=== PATIENT | female | born 1950 | race Caucasian/White ===

== ENCOUNTER 2020-10-26 16:14 | Observation (INO) ==
[2020-10-26] MEDS ORDERED: Ondansetron 4 MG/2 ML VIAL IVP ONE (16:25)
[2020-10-26] MEDS ORDERED: Isovue-370 500 ML BOTTLE IVP ONE (16:32)
[2020-10-26] MEDS ORDERED: 0.9 % Sodium Chloride 1,000 ML IVC ONE (16:32)
[2020-10-26 16:56] LABS: Basophils # 0.1 K/mcL (0.0-0.2); Basophils % 0.9 %; Eosinophils # 0.4 K/mcL (0.0-0.6); Eosinophils % 5.5 %; Hematocrit 38.3 % (35.3-44.9); Hemoglobin 12.3 g/dL (11.5-15.4); Immature Granulocytes % 0.3 % (0-4); Lymphocytes # 1.2 K/mcL (0.6-4.6); Lymphocytes % 18.4 %; Mean Corpuscular HGB Conc 32.1 g/dL (31.6-35.5); Mean Corpuscular Hemoglobin 31.5 pg (28.0-33.3); Monocytes # 0.4 K/mcL (0.0-1.3); Monocytes % 5.8 %; Neutrophils # 4.6 K/mcL (1.6-8.9); Platelet Count 274 K/mcL (140-400); Red Blood Count 3.91 M/mcL (3.82-4.97); Red Cell Distribution Width 13.5 % (11.5-14.5); Segmented Neutrophils % 69.1 %; White Blood Count 6.7 K/mcL (4.3-11.1)
[2020-10-26 17:27] LABS: Calcium 9.2 mg/dL (8.6-10.3); Potassium 4.1 mEq/L (3.5-5.1); Troponin I 0.04 ng/mL (< 0.04)
[2020-10-26] MEDS ORDERED: *HR* Heparin 5,000 UNIT/ML VIAL IVP PRN ×2 (18:55)
[2020-10-26] MEDS ORDERED: *HR* Heparin 5,000 UNIT/ML VIAL IVP ONE (18:55)
[2020-10-26] MEDS ORDERED: Heparin 25,000UNIT/250ML 1/2NS 25,000 UNIT/250 ML IV.SOLN IVC SCH (19:00)
[2020-10-26 19:45] LABS: Heparin anti-factor XA UFH < 0.04 IU/mL (0.30-0.70)
[2020-10-26 19:46] LABS: Prothrombin Time 11.6 Seconds (9.4-12.1)
[2020-10-26 20:07] LABS: Hematocrit 36.1 % (35.3-44.9); Hemoglobin 11.6 g/dL (11.5-15.4); Mean Corpuscular HGB Conc 32.1 g/dL (31.6-35.5); Mean Corpuscular Hemoglobin 31.7 pg (28.0-33.3); Mean Corpuscular Volume 98.6 fL (83.0-100.0); Mean Platelet Volume 9.3 fL (9.4-12.4); Platelet Count 254 K/mcL (140-400); Red Blood Count 3.66 M/mcL (3.82-4.97); Red Cell Distribution Width 13.5 % (11.5-14.5); White Blood Count 9.9 K/mcL (4.3-11.1)
[2020-10-26] MEDS ORDERED: *HR* HYDROcodone/Acet 5/325 mg TABLET PO PRN (20:13)
[2020-10-26] MEDS ORDERED: Naloxone 0.4 MG/ML INJ IVP PRN (20:13)
[2020-10-26] MEDS ORDERED: Acetaminophen 325 MG TABLET PO PRN (20:13)
[2020-10-26] MEDS ORDERED: Ondansetron 4 MG/2 ML VIAL IVP PRN (20:13)
[2020-10-26] MEDS ORDERED: Melatonin 3 MG TABLET PO SCH (21:00)
[2020-10-26] MEDS: 0.9 % Sodium Chloride 1,000 ML IVC SCH (21:24)
[2020-10-26] MEDS: BuPROPion XL (24 HR) 150 MG TABLET PO SCH (21:24)
[2020-10-26 22:07] LABS: Albumin 3.7 g/dL (3.5-5.7); Albumin/Globulin Ratio 1.3 (1.1-2.2); Bilirubin,Total 0.2 mg/dL (0.3-1.0); Calcium 8.8 mg/dL (8.6-10.3); Globulin 2.8 g/dL (2.4-3.5); Phosphorous 3.6 mg/dL (2.7-4.5); Potassium 4.7 mEq/L (3.5-5.1); Total Protein 6.5 g/dL (6.4-8.9); Troponin I 0.05 ng/mL (< 0.04)
[2020-10-27 03:06] LABS: Basophils % 0.1 %; Eosinophils # 0.4 K/mcL (0.0-0.6); Hematocrit 36.2 % (35.3-44.9); Hemoglobin 11.6 g/dL (11.5-15.4); Immature Granulocytes % 0.1 % (0-4); Lymphocytes # 0.9 K/mcL (0.6-4.6); Lymphocytes % 11.2 %; Mean Corpuscular Volume 99.7 fL (83.0-100.0); Mean Platelet Volume 9.6 fL (9.4-12.4); Monocytes # 0.2 K/mcL (0.0-1.3); Monocytes % 2.3 %; Neutrophils # 6.3 K/mcL (1.6-8.9); Platelet Count 268 K/mcL (140-400); Red Blood Count 3.63 M/mcL (3.82-4.97); Red Cell Distribution Width 13.5 % (11.5-14.5); Segmented Neutrophils % 81.3 %; White Blood Count 7.8 K/mcL (4.3-11.1)
[2020-10-27 03:37] LABS: Calcium 8.3 mg/dL (8.6-10.3); Chol/HDL Ratio 5.5 (0-4.9); Potassium 3.9 mEq/L (3.5-5.1); Troponin I 0.05 ng/mL (< 0.04)
[2020-10-27] MEDS ORDERED: hydrOXYzine pamoate 25 MG CAPSULE PO ONE (03:43)
[2020-10-27] MEDS: 0.9 % Sodium Chloride 1,000 ML IVC SCH (05:17)
[2020-10-27] MEDS: BuPROPion XL (24 HR) 150 MG TABLET PO SCH (08:30)
[2020-10-27] MEDS ORDERED: hydrOXYzine pamoate 25 MG CAPSULE PO PRN (09:23)
[2020-10-27] MEDS ORDERED: predniSONE 20 MG TABLET PO SCH (09:30)
[2020-10-27 11:03] VITALS: BP 127/71
== END 2020-10-27 14:31 | disposition home or self-care (01) ==
LOC: 3BNU 16:14 → EMEROOARM 16:14 → SUATTDRO 19:33 → 3BNU 20:26
PROVIDERS: ADMIT Family Medicine; ATTEND Internal Medicine

== ENCOUNTER 2021-01-05 07:26 | Inpatient (IN) ==
[~2021-01-05 07:26] MED LIST: Acetaminophen IV 1,000 MG/100 ML BAG IVPB ONE; Famotidine 20 MG/2 ML VIAL IVP ONE; Vancomycin 1,000 MG, Sodium Chloride IRRigation 1,000 ML IR ONE
[2021-01-05] MEDS ORDERED: CeFAZolin Syr 2,000MG/20 ML 2,000 MG/20 ML SYRINGE IVPB ONE (08:01)
[2021-01-05] MEDS ORDERED: Ringers Solution, Lactated 1,000 ML IVC SCH (08:15)
[2021-01-05] MEDS ORDERED: 0.9 % Sodium Chloride 500 ML IVC SCH (08:15)
[2021-01-05] MEDS ORDERED: Heparin 1,000 UNITS/500 mL 500 ML ONE ×2 (08:35→08:54)
[2021-01-05] MEDS ORDERED: *HR* Midazolam HCl 2 MG/2 ML VIAL ONE (08:46)
[2021-01-05] MEDS ORDERED: *HR* FentaNYL (PF) 100 MCG/2 ML VIAL ONE (08:46)
[2021-01-05] MEDS ORDERED: Albumin Human 5% 25.0 GM/500 ML IV.SOLN ONE (08:51)
[2021-01-05] MEDS ORDERED: *HR* Vasopressin 20 UNIT/ML VIAL ONE ×2 (08:52→13:49)
[2021-01-05] MEDS ORDERED: Lidocaine -MPF 2% 2 ML VIAL ONE (08:54)
[2021-01-05] MEDS ORDERED: *HR* Rocuronium Bromide 50 MG/5 ML VIAL ONE ×2 (08:54→10:21)
[2021-01-05] MEDS ORDERED: Lidocaine HCL 4 ML Topical Solution (Laryng-O-Jet Kit Sterile Pak) TP ONE (08:54)
[2021-01-05] MEDS ORDERED: *HR* Propofol 200 MG/20 ML VIAL IVP ONE (08:54)
[2021-01-05] MEDS ORDERED: Ondansetron 4 MG/2 ML VIAL ONE (08:54)
[2021-01-05] MEDS ORDERED: *HR* Phenylephrine 10 MG/ML VIAL ONE (08:55)
[2021-01-05] MEDS ORDERED: Vancomycin 1,000 MG, Sodium Chloride IRRigation 1,000 ML IR ONE (09:00)
[2021-01-05] MEDS ORDERED: Ondansetron 4 MG/2 ML VIAL IVP PRN (09:34)
[2021-01-05] MEDS ORDERED: *HR* HYDROmorphone PF 0.5 MG/0.5 ML SYRINGE IVP PRN (09:34)
[2021-01-05 10:22] LABS: ABG Base Excess -6 mEq/L (-2 to 3); ABG Chloride 109 mEq/L (98-107); ABG Glucose 83 mg/dL (60-95); ABG HCO3 19 mEq/L (21-27); ABG Ionized Calcium 1.07 mmol/L (1.15-1.35); ABG Oxygen Saturation 100 % (95-98); ABG PCO2 34 mmHg (35-45); ABG PH 7.36 pH Units (7.32-7.45); ABG PO2 368 mmHg (85-104); ABG TCO2 20 mEq/L (20-26)
[2021-01-05] MEDS ORDERED: EPHEDrine 50 MG/ML VIAL ONE (10:37)
[2021-01-05] MEDS ORDERED: Nitroglycerin 0 MG/0 ML INFUS..BTL IVC ONE (11:34)
[2021-01-05] MEDS ORDERED: NiCARdipine 2.5 MG/10 ML Syringe IVPB ONE (11:34)
[2021-01-05] MEDS ORDERED: *HR* Nitroprusside 50 MG VIAL IVC ONE (11:34)
[2021-01-05] MEDS ORDERED: niCARdipine 0 MG/0 ML MLS IVC ONE (11:34)
[2021-01-05] MEDS ORDERED: *HR* Norepinephrine 4 MG/4 ML VIAL IVC ONE (11:50)
[2021-01-05] MEDS ORDERED: *HR* Labetalol 20 MG/4 ML SYRINGE IVP PRN ×2 (11:55→15:29)
[2021-01-05] MEDS ORDERED: Vancomycin 1,000 MG VIAL ONE (12:10)
[2021-01-05] MEDS ORDERED: Sugammadex Sodium 200 MG/2 ML VIAL IV ONE (12:36)
[2021-01-05] MEDS ORDERED: *HR* Heparin 5,000 UNIT/ML VIAL ONE (12:38)
[2021-01-05 12:47] LABS: ABG Base Excess -4 mEq/L (-2 to 3); ABG Chloride 110 mEq/L (98-107); ABG Glucose 144 mg/dL (60-95); ABG HCO3 20 mEq/L (21-27); ABG Ionized Calcium 1.06 mmol/L (1.15-1.35); ABG Oxygen Saturation 100 % (95-98); ABG PCO2 35 mmHg (35-45); ABG PH 7.38 pH Units (7.32-7.45); ABG PO2 394 mmHg (85-104); ABG TCO2 22 mEq/L (20-26)
[2021-01-05] MEDS ORDERED: *HR* HYDROMORPHONE 2 MG/ML VIAL ONE (13:01)
[2021-01-05 13:57] LABS: ABG Base Excess 0 mEq/L (-2 to 3); ABG Chloride 109 mEq/L (98-107); ABG Glucose 119 mg/dL (60-95); ABG HCO3 26 mEq/L (21-27); ABG Ionized Calcium 1.22 mmol/L (1.15-1.35); ABG Oxygen Saturation 94 % (95-98); ABG PCO2 48 mmHg (35-45); ABG PH 7.34 pH Units (7.32-7.45); ABG PO2 75 mmHg (85-104); ABG TCO2 28 mEq/L (20-26)
[2021-01-05] MEDS ORDERED: 0.9 % Sodium Chloride 1,000 ML ONE (14:26)
[2021-01-05] MEDS: Phenylephrine 10 MG in 0.9 % Sodium Chloride 250 ML IVC SCH ×2 (14:27→20:28)
[2021-01-05] MEDS ORDERED: Naloxone 0.4 MG/ML INJ IVP PRN (15:29)
[2021-01-05] MEDS ORDERED: 0.9 % Sodium Chloride 1,000 ML IVC SCH ×2 (15:29→18:14)
[2021-01-05] MEDS: CeFAZolin 2 GM/120 ML BAG IVPB SCH ×2 (17:29→23:36)
[2021-01-05] MEDS ORDERED: Phenylephrine 10 MG in 0.9 % Sodium Chloride 250 ML IVC SCH (18:15)
[2021-01-05] MEDS: *HR* Metoprolol 5 MG/5 ML VIAL IVP SCH ×2 (18:18→23:31)
[2021-01-05] MEDS: Morphine Sulfate 2 MG/ML SYRINGE IVP PRN (22:15)
[2021-01-06] MEDS: Morphine Sulfate 2 MG/ML SYRINGE IVP PRN ×9 (02:14→22:06)
[2021-01-06 05:06] LABS: Basophils % 0.2 %; Hematocrit 31.8 % (35.3-44.9); Hemoglobin 10.7 g/dL (11.5-15.4); Immature Granulocytes % 0.4 % (0-4); Lymphocytes # 0.9 K/mcL (0.6-4.6); Lymphocytes % 6.7 %; Mean Corpuscular HGB Conc 33.6 g/dL (31.6-35.5); Mean Corpuscular Volume 95.2 fL (83.0-100.0); Mean Platelet Volume 9.7 fL (9.4-12.4); Monocytes # 0.7 K/mcL (0.0-1.3); Monocytes % 5.1 %; Neutrophils # 11.7 K/mcL (1.6-8.9); Platelet Count 194 K/mcL (140-400); Red Blood Count 3.34 M/mcL (3.82-4.97); Red Cell Distribution Width 13.6 % (11.5-14.5); Segmented Neutrophils % 87.6 %; White Blood Count 13.3 K/mcL (4.3-11.1)
[2021-01-06 05:26] LABS: Calcium 7.2 mg/dL (8.6-10.3); Potassium 4.2 mEq/L (3.5-5.1)
[2021-01-06] MEDS ORDERED: *HR* Heparin 5,000 UNIT/ML VIAL SQ SCH ×2 (06:00)
[2021-01-06] MEDS: *HR* Metoprolol 5 MG/5 ML VIAL IVP SCH ×3 (06:05→18:20)
[2021-01-06] MEDS ORDERED: Aspirin Enteric Coated 81 MG Tablet PO SCH (09:00)
[2021-01-06] MEDS ORDERED: BuPROPion XL (24 HR) 150 MG TABLET PO SCH (09:00)
[2021-01-06] MEDS ORDERED: 0.9 % Sodium Chloride 500 ML IVC ONE (12:42)
[2021-01-06] MEDS ORDERED: 0.9 % Sodium Chloride 1,000 ML IVC SCH (13:00)
[2021-01-06] MEDS ORDERED: 0.9 % Sodium Chloride 500 ML ONE (13:07)
[2021-01-06] MEDS ORDERED: 0.9 % Sodium Chloride 1,000 ML ONE (13:07)
[2021-01-06] MEDS ORDERED: *HR* Labetalol 20 MG/4 ML SYRINGE IVP PRN (17:34)
[2021-01-06] MEDS ORDERED: Naloxone 0.4 MG/ML INJ IVP PRN (17:34)
[2021-01-06] MEDS: *HR* Heparin 5,000 UNIT/ML VIAL SQ SCH (18:20)
[2021-01-06] MEDS: 0.9 % Sodium Chloride 1,000 ML IVC SCH (20:38)
[2021-01-07] MEDS: Morphine Sulfate 2 MG/ML SYRINGE IVP PRN ×5 (00:25→11:43)
[2021-01-07] MEDS: *HR* Metoprolol 5 MG/5 ML VIAL IVP SCH ×5 (01:30→18:12)
[2021-01-07] MEDS: 0.9 % Sodium Chloride 1,000 ML IVC SCH ×2 (03:18→18:09)
[2021-01-07 04:24] LABS: Basophils % 0.2 %; Eosinophils % 0.2 %; Hematocrit 29.4 % (35.3-44.9); Hemoglobin 9.5 g/dL (11.5-15.4); Immature Granulocytes % 0.5 % (0-4); Lymphocytes # 0.6 K/mcL (0.6-4.6); Lymphocytes % 3.5 %; Mean Corpuscular HGB Conc 32.3 g/dL (31.6-35.5); Mean Platelet Volume 9.6 fL (9.4-12.4); Monocytes # 1.1 K/mcL (0.0-1.3); Monocytes % 6.3 %; Platelet Count 183 K/mcL (140-400); Red Blood Count 2.97 M/mcL (3.82-4.97); Red Cell Distribution Width 14.4 % (11.5-14.5); Segmented Neutrophils % 89.3 %; White Blood Count 17.1 K/mcL (4.3-11.1)
[2021-01-07 04:27] LABS: Neutrophils # 15.3 K/mcL (1.6-8.9)
[2021-01-07 04:35] LABS: Potassium 4.4 mEq/L (3.5-5.1)
[2021-01-07 04:40] LABS: Platelet Estimate Normal (Normal)
[2021-01-07] MEDS: *HR* Heparin 5,000 UNIT/ML VIAL SQ SCH ×2 (05:18→18:10)
[2021-01-07] MEDS ORDERED: Aspirin Enteric Coated 81 MG Tablet PO SCH (09:00)
[2021-01-07] MEDS ORDERED: 0.9 % Sodium Chloride 500 ML IVC ONE (12:09)
[2021-01-07] MEDS ORDERED: Acetaminophen IV 1,000 MG/100 ML BAG IVPB ONE (12:23)
[2021-01-07] MEDS ORDERED: *HR* LORazepam 2 MG/ML VIAL IVP PRN (12:32)
[2021-01-07] MEDS ORDERED: Naloxone 0.4 MG/ML INJ IVP PRN (13:33)
[2021-01-07] MEDS ORDERED: *HR* Labetalol 20 MG/4 ML SYRINGE IVP PRN (13:33)
[2021-01-08] MEDS: *HR* Metoprolol 5 MG/5 ML VIAL IVP SCH ×5 (00:18→23:57)
[2021-01-08 04:39] LABS: Basophils % 0.2 %; Eosinophils % 0.1 %; Hematocrit 25.2 % (35.3-44.9); Hemoglobin 8.1 g/dL (11.5-15.4); Immature Granulocytes % 1.1 % (0-4); Lymphocytes # 0.7 K/mcL (0.6-4.6); Lymphocytes % 4.3 %; Mean Corpuscular HGB Conc 32.1 g/dL (31.6-35.5); Mean Corpuscular Hemoglobin 31.5 pg (28.0-33.3); Mean Corpuscular Volume 98.1 fL (83.0-100.0); Mean Platelet Volume 9.5 fL (9.4-12.4); Monocytes # 0.6 K/mcL (0.0-1.3); Neutrophils # 13.6 K/mcL (1.6-8.9); Platelet Count 169 K/mcL (140-400); Red Blood Count 2.57 M/mcL (3.82-4.97); Red Cell Distribution Width 14.6 % (11.5-14.5); Segmented Neutrophils % 90.3 %; White Blood Count 15.1 K/mcL (4.3-11.1)
[2021-01-08] MEDS: *HR* Heparin 5,000 UNIT/ML VIAL SQ SCH ×2 (04:42→17:03)
[2021-01-08 04:56] LABS: Calcium 6.8 mg/dL (8.6-10.3); Potassium 4.1 mEq/L (3.5-5.1)
[2021-01-08] MEDS: 0.9 % Sodium Chloride 1,000 ML IVC SCH ×2 (08:05→21:40)
[2021-01-08] MEDS: *HR* LORazepam 2 MG/ML VIAL IVP PRN (08:07)
[2021-01-08] MEDS: Aspirin Enteric Coated 81 MG Tablet PO SCH (08:12)
[2021-01-09] MEDS: *HR* Metoprolol 5 MG/5 ML VIAL IVP SCH ×4 (05:20→23:37)
[2021-01-09] MEDS: *HR* Heparin 5,000 UNIT/ML VIAL SQ SCH ×2 (05:21→18:08)
[2021-01-09] MEDS: Aspirin Enteric Coated 81 MG Tablet PO SCH (08:33)
[2021-01-09] MEDS: Morphine Sulfate 2 MG/ML SYRINGE IVP PRN (08:35)
[2021-01-09] MEDS: 0.9 % Sodium Chloride 1,000 ML IVC SCH (10:37)
[2021-01-09 12:41] LABS: Hematocrit 26.3 % (35.3-44.9); Hemoglobin 8.4 g/dL (11.5-15.4); Mean Corpuscular HGB Conc 31.9 g/dL (31.6-35.5); Mean Platelet Volume 9.4 fL (9.4-12.4); Platelet Count 221 K/mcL (140-400); Red Blood Count 2.71 M/mcL (3.82-4.97); Red Cell Distribution Width 14.8 % (11.5-14.5); White Blood Count 13.9 K/mcL (4.3-11.1)
[2021-01-09 14:32] LABS: Calcium 7.4 mg/dL (8.6-10.3); Potassium 4.4 mEq/L (3.5-5.1)
[2021-01-10 06:01] LABS: Hematocrit 23.7 % (35.3-44.9); Mean Corpuscular HGB Conc 33.8 g/dL (31.6-35.5); Mean Corpuscular Hemoglobin 31.9 pg (28.0-33.3); Mean Corpuscular Volume 94.4 fL (83.0-100.0); Mean Platelet Volume 9.6 fL (9.4-12.4); Platelet Count 220 K/mcL (140-400); Red Blood Count 2.51 M/mcL (3.82-4.97); Red Cell Distribution Width 14.6 % (11.5-14.5); White Blood Count 10.2 K/mcL (4.3-11.1)
[2021-01-10] MEDS: *HR* Heparin 5,000 UNIT/ML VIAL SQ SCH ×2 (06:11→20:12)
[2021-01-10] MEDS: *HR* Metoprolol 5 MG/5 ML VIAL IVP SCH ×3 (06:11→20:12)
[2021-01-10 06:26] LABS: Calcium 7.1 mg/dL (8.6-10.3); Potassium 3.8 mEq/L (3.5-5.1)
[2021-01-10] MEDS: Aspirin Enteric Coated 81 MG Tablet PO SCH (07:56)
[2021-01-10] MEDS ORDERED: Furosemide 20 MG/2 ML VIAL IVP ONE ×2 (08:06→14:07)
[2021-01-10] MEDS: Morphine Sulfate 2 MG/ML SYRINGE IVP PRN ×2 (10:58→16:21)
[2021-01-11] MEDS: *HR* Metoprolol 5 MG/5 ML VIAL IVP SCH ×4 (00:50→17:04)
[2021-01-11] MEDS: *HR* Heparin 5,000 UNIT/ML VIAL SQ SCH ×2 (05:45→17:04)
[2021-01-11] MEDS: Aspirin Enteric Coated 81 MG Tablet PO SCH (07:38)
[2021-01-11] MEDS: Ondansetron 4 MG/2 ML VIAL IVP PRN (12:52)
[2021-01-11] MEDS: Morphine Sulfate 2 MG/ML SYRINGE IVP PRN (14:15)
[2021-01-12] MEDS: *HR* Metoprolol 5 MG/5 ML VIAL IVP SCH ×3 (00:02→11:42)
[2021-01-12] MEDS: *HR* Heparin 5,000 UNIT/ML VIAL SQ SCH ×2 (06:08→17:52)
[2021-01-12] MEDS: Aspirin Enteric Coated 81 MG Tablet PO SCH (07:39)
[2021-01-12] MEDS ORDERED: Nitroglycerin 0.4 MG TAB.SUBL SL PRN (12:53)
[2021-01-12] MEDS: Cholecalciferol (D-3) 1,000 UNIT (25MCG) TABLET PO SCH (14:34)
[2021-01-12] MEDS: atenoloL 25 MG TABLET PO SCH (14:34)
[2021-01-12] MEDS: Melatonin 3 MG TABLET PO SCH (20:18)
[2021-01-13] MEDS: *HR* Heparin 5,000 UNIT/ML VIAL SQ SCH ×2 (05:44→17:25)
[2021-01-13] MEDS: atenoloL 25 MG TABLET PO SCH (09:04)
[2021-01-13] MEDS: Aspirin Enteric Coated 81 MG Tablet PO SCH (09:04)
[2021-01-13] MEDS: Cholecalciferol (D-3) 1,000 UNIT (25MCG) TABLET PO SCH (09:04)
[2021-01-13] MEDS: Melatonin 3 MG TABLET PO SCH (20:32)
[2021-01-14] MEDS: *HR* Heparin 5,000 UNIT/ML VIAL SQ SCH ×2 (05:41→17:40)
[2021-01-14] MEDS: Cholecalciferol (D-3) 1,000 UNIT (25MCG) TABLET PO SCH (07:42)
[2021-01-14] MEDS: atenoloL 25 MG TABLET PO SCH (07:42)
[2021-01-14] MEDS: Aspirin Enteric Coated 81 MG Tablet PO SCH (07:42)
[2021-01-14] MEDS: *HR* LORazepam 2 MG/ML VIAL IVP PRN (18:14)
[2021-01-14] MEDS: Melatonin 3 MG TABLET PO SCH (20:34)
[2021-01-15] MEDS: *HR* Heparin 5,000 UNIT/ML VIAL SQ SCH ×2 (05:28→17:48)
[2021-01-15] MEDS: Aspirin Enteric Coated 81 MG Tablet PO SCH (08:17)
[2021-01-15] MEDS: BuPROPion XL (24 HR) 150 MG TABLET PO SCH (08:18)
[2021-01-15] MEDS: atenoloL 25 MG TABLET PO SCH (08:18)
[2021-01-15] MEDS: Cholecalciferol (D-3) 1,000 UNIT (25MCG) TABLET PO SCH (08:19)
[2021-01-15] MEDS: Ondansetron 4 MG/2 ML VIAL IVP PRN (08:19)
[2021-01-15] MEDS: Melatonin 3 MG TABLET PO SCH ×2 (20:31→21:45)
[2021-01-16] MEDS: *HR* Heparin 5,000 UNIT/ML VIAL SQ SCH ×2 (04:59→17:05)
[2021-01-16] MEDS: atenoloL 25 MG TABLET PO SCH (08:20)
[2021-01-16] MEDS: BuPROPion XL (24 HR) 150 MG TABLET PO SCH (08:20)
[2021-01-16] MEDS: Aspirin Enteric Coated 81 MG Tablet PO SCH (08:20)
[2021-01-16] MEDS: Cholecalciferol (D-3) 1,000 UNIT (25MCG) TABLET PO SCH (08:20)
[2021-01-16 16:20] VITALS: BP 134/73
[2021-01-16 18:11] LABS: Adenovirus Not Detected (Not Detect); Bordetella Pertussis Not Detected (Not Detect); Chlamydophila pneumoniae Not Detected (Not Detect); Coronavirus 229E Not Detected (Not Detect); Coronavirus HKU1 Not Detected (Not Detect); Coronavirus NL63 Not Detected (Not Detect); Coronavirus OC43 Not Detected (Not Detect); Human Metapneumovirus Not Detected (Not Detect); Human Rhinovirus/Enterovirus Not Detected (Not Detect); Influenza A Subtype 2009 H1 Not Detected (Not Detect); Influenza B Not Detected (Not Detect); Mycoplasma pneumoniae Not Detected (Not Detect); Parainfluenza Virus 1 Not Detected (Not Detect); Parainfluenza Virus 2 Not Detected (Not Detect); Parainfluenza Virus 3 Not Detected (Not Detect); Parainfluenza Virus 4 Not Detected (Not Detect); Respiratory Syncytial Virus Not Detected (Not Detect); SARS-CoV-2 Not Detected (Not Detect)
== END 2021-01-16 19:19 | disposition other institution (70) | DRG 269 ==
LOC: SAMDAY 07:26 → ICNU 14:22 → 2NNU 01-07 18:00
PROVIDERS: ADMIT Surgery; ATTEND Surgery

== ENCOUNTER 2021-02-10 17:11 | Observation (INO) ==
[2021-02-10] MEDS ORDERED: 0.9 % Sodium Chloride 1,000 ML IVC ONE (18:27)
[2021-02-10] MEDS ORDERED: Isovue-370 500 ML BOTTLE IVP ONE (18:28)
[2021-02-10 18:45] LABS: Basophils # 0.1 K/mcL (0.0-0.2); Basophils % 1.3 %; Eosinophils # 0.6 K/mcL (0.0-0.6); Eosinophils % 11.1 %; Hematocrit 28.1 % (35.3-44.9); Hemoglobin 9.1 g/dL (11.5-15.4); Immature Granulocytes % 0.2 % (0-4); Lymphocytes # 0.8 K/mcL (0.6-4.6); Lymphocytes % 13.7 %; Mean Corpuscular HGB Conc 32.4 g/dL (31.6-35.5); Mean Corpuscular Volume 95.6 fL (83.0-100.0); Mean Platelet Volume 9.3 fL (9.4-12.4); Monocytes # 0.4 K/mcL (0.0-1.3); Monocytes % 6.7 %; Neutrophils # 3.7 K/mcL (1.6-8.9); Platelet Count 291 K/mcL (140-400); Red Blood Count 2.94 M/mcL (3.82-4.97); Red Cell Distribution Width 13.7 % (11.5-14.5); White Blood Count 5.5 K/mcL (4.3-11.1)
[2021-02-10 19:06] LABS: BUN/Creatinine Ratio 13 (6-26); Blood Urea Nitrogen 28 mg/dL (8-23); Calcium 9.4 mg/dL (8.6-10.3); Carbon Dioxide 24 mEq/L (23-29); Chloride 98 mEq/L (98-107); Glucose 117 mg/dL (70-105); Osmolality,Calculated 273 (280-300); Potassium 4.2 mEq/L (3.5-5.1); Sodium 128 mEq/L (136-145); eGFR For African Americans 27 (> 60); eGFR For Non-African Americans 22 (> 60)
[2021-02-10 19:13] LABS: Troponin I < 0.03 ng/mL (< 0.04)
[2021-02-10] MEDS ORDERED: Aspirin 81 MG TAB.CHEW PO ONE (22:05)
[2021-02-10] MEDS ORDERED: Ondansetron 4 MG/2 ML VIAL IVP PRN (22:14)
[2021-02-10] MEDS ORDERED: Melatonin 3 MG TABLET PO PRN (22:14)
[2021-02-10] MEDS ORDERED: Naloxone 0.4 MG/ML INJ IVP PRN (22:14)
[2021-02-10] MEDS ORDERED: 0.9 % Sodium Chloride 1,000 ML IVC SCH (22:15)
[2021-02-11 00:35] LABS: Bilirubin,Urine Negative (Negative); Blood,Urine Negative (Negative); Clarity,Urine Clear (Clear); Color,Urine Colorless (Yellow); Glucose,Urine (UA) Normal (Normal); Ketones,Urine Negative (Negative); Leukocyte Esterase,Urine Negative (Negative); Nitrite,Urine Negative (Negative); PH,Urine 6.5 pH Units (5.0-8.0); Protein,Urine Negative (Neg-Trace); Specific Gravity,Urine 1.017 (1.010-1.025); Urobilinogen,Urine Normal (Normal)
[2021-02-11 03:00] LABS: Protein/Creatinine Ratio,Urine 0.43 mg/mg (0.00-0.20); Sodium, Urine 71.4 mEq/L
[2021-02-11] MEDS: Aspirin Enteric Coated 81 MG Tablet PO SCH (09:24)
[2021-02-11 09:32] LABS: Hematocrit 28.8 % (35.3-44.9); Hemoglobin 9.3 g/dL (11.5-15.4); Mean Corpuscular HGB Conc 32.3 g/dL (31.6-35.5); Mean Corpuscular Hemoglobin 30.8 pg (28.0-33.3); Mean Corpuscular Volume 95.4 fL (83.0-100.0); Mean Platelet Volume 9.1 fL (9.4-12.4); Platelet Count 264 K/mcL (140-400); Red Blood Count 3.02 M/mcL (3.82-4.97); Red Cell Distribution Width 13.9 % (11.5-14.5)
[2021-02-11 09:53] LABS: BUN/Creatinine Ratio 11 (6-26); Blood Urea Nitrogen 25 mg/dL (8-23); Calcium 8.6 mg/dL (8.6-10.3); Carbon Dioxide 20 mEq/L (23-29); Chloride 105 mEq/L (98-107); Glucose 85 mg/dL (70-105); Osmolality,Calculated 274 (280-300); Potassium 4.7 mEq/L (3.5-5.1); Sodium 130 mEq/L (136-145); eGFR For African Americans 27 (> 60); eGFR For Non-African Americans 22 (> 60)
[2021-02-11 09:56] LABS: % Iron Saturation 19 % (15-50); Iron 48 mcg/dL (50-170); Transferrin 184 mg/dL (203-362)
[2021-02-11 10:13] LABS: Troponin I < 0.03 ng/mL (< 0.04)
[2021-02-11 10:14] LABS: Ferritin 74 ng/mL (10-120)
[2021-02-11] MEDS ORDERED: Acetaminophen 325 MG TABLET PO PRN (11:54)
[2021-02-11] MEDS ORDERED: 0.9 % Sodium Chloride 1,000 ML IVC SCH (13:15)
[2021-02-11] MEDS: Sucralfate 1 GM TABLET PO SCH (19:54)
[2021-02-11] MEDS ORDERED: *HR* HYDROcodone/Acet 5/325 mg TABLET PO ONE (20:32)
[2021-02-12 06:26] LABS: Basophils % 0.6 %; Eosinophils # 0.8 K/mcL (0.0-0.6); Eosinophils % 16.2 %; Hemoglobin 8.3 g/dL (11.5-15.4); Lymphocytes # 0.7 K/mcL (0.6-4.6); Lymphocytes % 14.3 %; Mean Corpuscular HGB Conc 31.9 g/dL (31.6-35.5); Mean Corpuscular Hemoglobin 30.5 pg (28.0-33.3); Mean Corpuscular Volume 95.6 fL (83.0-100.0); Mean Platelet Volume 9.1 fL (9.4-12.4); Monocytes # 0.3 K/mcL (0.0-1.3); Monocytes % 5.3 %; Platelet Count 235 K/mcL (140-400); Red Blood Count 2.72 M/mcL (3.82-4.97); Segmented Neutrophils % 63.6 %; White Blood Count 4.7 K/mcL (4.3-11.1)
[2021-02-12 06:44] LABS: Calcium 8.1 mg/dL (8.6-10.3); Potassium 4.5 mEq/L (3.5-5.1)
[2021-02-12 06:45] LABS: Uric Acid 6.1 mg/dL (2.3-7.6)
[2021-02-12 07:06] LABS: Hepatitis B Surface Antigen Nonreactive (Nonreactive)
[2021-02-12 07:35] LABS: Hepatitis B Core IgM Nonreactive (Nonreactive); Hepatitis C Virus Antibody Nonreactive (Nonreactive)
[2021-02-12 07:49] LABS: Hepatitis A Antibody IgM Reactive (Nonreactive)
[2021-02-12] MEDS: Aspirin Enteric Coated 81 MG Tablet PO SCH (07:49)
[2021-02-12] MEDS: BuPROPion XL (24 HR) 150 MG TABLET PO SCH (07:49)
[2021-02-12] MEDS: Sucralfate 1 GM TABLET PO SCH ×2 (07:49→20:10)
[2021-02-12] MEDS: atenoloL 25 MG TABLET PO SCH (07:49)
[2021-02-12] MEDS: 0.9 % Sodium Chloride 1,000 ML IVC SCH (14:37)
[2021-02-13] MEDS: 0.9 % Sodium Chloride 1,000 ML IVC SCH (02:43)
[2021-02-13 06:33] LABS: Basophils % 0.5 %; Eosinophils # 0.7 K/mcL (0.0-0.6); Eosinophils % 12.6 %; Hematocrit 25.4 % (35.3-44.9); Hemoglobin 8.2 g/dL (11.5-15.4); Immature Granulocytes % 0.2 % (0-4); Lymphocytes # 0.7 K/mcL (0.6-4.6); Mean Corpuscular HGB Conc 32.3 g/dL (31.6-35.5); Mean Corpuscular Hemoglobin 30.8 pg (28.0-33.3); Mean Corpuscular Volume 95.5 fL (83.0-100.0); Mean Platelet Volume 8.8 fL (9.4-12.4); Monocytes # 0.3 K/mcL (0.0-1.3); Monocytes % 6.2 %; Neutrophils # 3.8 K/mcL (1.6-8.9); Platelet Count 233 K/mcL (140-400); Red Blood Count 2.66 M/mcL (3.82-4.97); Segmented Neutrophils % 68.5 %; White Blood Count 5.5 K/mcL (4.3-11.1)
[2021-02-13 06:53] LABS: Calcium 8.4 mg/dL (8.6-10.3); Potassium 4.8 mEq/L (3.5-5.1)
[2021-02-13 07:54] VITALS: BP 167/78
[2021-02-13] MEDS: Sucralfate 1 GM TABLET PO SCH (08:29)
[2021-02-13] MEDS: atenoloL 25 MG TABLET PO SCH (08:29)
[2021-02-13] MEDS: BuPROPion XL (24 HR) 150 MG TABLET PO SCH (08:29)
[2021-02-13] MEDS: Aspirin Enteric Coated 81 MG Tablet PO SCH (08:29)
== END 2021-02-13 13:08 | disposition home or self-care (01) ==
LOC: 2ANU 17:11 → EMEROOARM 17:11 → SUATTDRO 22:40 → 2ANU 23:07
PROVIDERS: ADMIT Student in an Organized Health Care Education/Training Program; ATTEND Family Medicine

== ENCOUNTER 2021-02-21 14:38 | Observation (INO) ==
[2021-02-21] MEDS ORDERED: 0.9 % Sodium Chloride 1,000 ML IVC ONE (15:05)
[2021-02-21 15:27] LABS: Basophils # 0.1 K/mcL (0.0-0.2); Basophils % 1.3 %; Eosinophils # 0.6 K/mcL (0.0-0.6); Eosinophils % 10.5 %; Hematocrit 29.9 % (35.3-44.9); Hemoglobin 10.1 g/dL (11.5-15.4); Immature Granulocytes % 0.4 % (0-4); Lymphocytes # 0.7 K/mcL (0.6-4.6); Lymphocytes % 12.1 %; Mean Corpuscular HGB Conc 33.8 g/dL (31.6-35.5); Mean Corpuscular Hemoglobin 31.1 pg (28.0-33.3); Mean Platelet Volume 9.1 fL (9.4-12.4); Monocytes # 0.4 K/mcL (0.0-1.3); Monocytes % 7.2 %; Neutrophils # 3.8 K/mcL (1.6-8.9); Platelet Count 359 K/mcL (140-400); Red Blood Count 3.25 M/mcL (3.82-4.97); Red Cell Distribution Width 13.1 % (11.5-14.5); Segmented Neutrophils % 68.5 %; White Blood Count 5.5 K/mcL (4.3-11.1)
[2021-02-21 15:40] LABS: Albumin 4.1 g/dL (3.5-5.7); Albumin/Globulin Ratio 1.5 (1.1-2.2); Bilirubin,Direct 0.1 mg/dL (0.0-0.2); Bilirubin,Indirect 0.2 mg/dL (0.0-1.0); Bilirubin,Total 0.3 mg/dL (0.3-1.0); Calcium 9.4 mg/dL (8.6-10.3); Globulin 2.7 g/dL (2.4-3.5); Potassium 4.4 mEq/L (3.5-5.1); Total Protein 6.8 g/dL (6.4-8.9)
[2021-02-21 16:22] LABS: Bilirubin,Urine Negative (Negative); Blood,Urine Negative (Negative); Clarity,Urine Clear (Clear); Color,Urine Colorless (Yellow); Glucose,Urine (UA) Normal (Normal); Ketones,Urine Negative (Negative); Leukocyte Esterase,Urine Negative (Negative); Nitrite,Urine Negative (Negative); PH,Urine 6.5 pH Units (5.0-8.0); Protein,Urine Trace mg/dL (Neg-Trace); Urobilinogen,Urine Normal (Normal)
[2021-02-21 16:51] LABS: Potassium,Urine 23.4 mEq/L; Sodium, Urine 37.2 mEq/L
[2021-02-21] MEDS ORDERED: Mag Hydrox/Al Hydrox/Simeth 30 ML UDC PO PRN (16:59)
[2021-02-21] MEDS ORDERED: Naloxone 0.4 MG/ML INJ IVP PRN (16:59)
[2021-02-21] MEDS ORDERED: Ondansetron ODT 4 MG TAB.RAPDIS SL PRN (16:59)
[2021-02-21] MEDS ORDERED: Acetaminophen 325 MG TABLET PO PRN (16:59)
[2021-02-21] MEDS ORDERED: MOM Conc 10 ML UD.LIQ PO PRN (16:59)
[2021-02-21] MEDS ORDERED: 0.9 % Sodium Chloride 1,000 ML IVC SCH (17:00)
[2021-02-21] MEDS ORDERED: Milk and Molasses Enema 200 ML RC ONE (18:48)
[2021-02-21] MEDS: *HR* Heparin 5,000 UNIT/ML VIAL SQ SCH (21:16)
[2021-02-21 22:05] LABS: Calcium 8.5 mg/dL (8.6-10.3); Potassium 3.7 mEq/L (3.5-5.1)
[2021-02-22 01:13] LABS: Hematocrit 26.3 % (35.3-44.9); Mean Corpuscular HGB Conc 34.2 g/dL (31.6-35.5); Mean Corpuscular Hemoglobin 31.5 pg (28.0-33.3); Mean Platelet Volume 8.9 fL (9.4-12.4); Platelet Count 288 K/mcL (140-400); Red Blood Count 2.86 M/mcL (3.82-4.97); Red Cell Distribution Width 13.1 % (11.5-14.5); White Blood Count 5.4 K/mcL (4.3-11.1)
[2021-02-22 01:33] LABS: Calcium 8.5 mg/dL (8.6-10.3); Potassium 3.9 mEq/L (3.5-5.1)
[2021-02-22 05:48] LABS: Calcium 8.3 mg/dL (8.6-10.3); Magnesium 1.7 mg/dL (1.6-2.6); Potassium 3.8 mEq/L (3.5-5.1)
[2021-02-22] MEDS: *HR* Heparin 5,000 UNIT/ML VIAL SQ SCH (06:12)
[2021-02-22] MEDS ORDERED: *HR* LORazepam 0.5 MG TABLET PO PRN (07:28)
[2021-02-22] MEDS ORDERED: Lactobacillus 1 EACH CAP.SPRINK PO SCH (09:00)
[2021-02-22] MEDS ORDERED: Sucralfate 1 GM TABLET PO SCH (09:00)
[2021-02-22] MEDS ORDERED: Cholecalciferol (D-3) 1,000 UNIT (25MCG) TABLET PO SCH (09:00)
[2021-02-22] MEDS ORDERED: Aspirin Enteric Coated 81 MG Tablet PO SCH (09:00)
[2021-02-22] MEDS ORDERED: BuPROPion XL (24 HR) 150 MG TABLET PO SCH (09:00)
[2021-02-22] MEDS ORDERED: calcium polycarbophiL 625 MG TABLET PO SCH (09:00)
[2021-02-22] MEDS ORDERED: atenoloL 25 MG TABLET PO SCH (09:00)
[2021-02-22 10:53] VITALS: BP 130/78; PULSE 69; TEMP 98.5; O2SAT 97
== END 2021-02-22 13:00 | disposition home or self-care (01) ==
LOC: 2ANU 14:38 → EMEROOARM 14:38 → 2ANU 18:14
PROVIDERS: ADMIT Internal Medicine; ATTEND Internal Medicine